=== PATIENT | female | born 1965 | race Caucasian/White ===

== ENCOUNTER 2023-04-19 10:48 | Emergency (ER) | payer OTHER ==
[~2023-04-19] VITALS: Ht 172.7 cm; Wt 88.5 kg
[~2023-04-19 10:48] MED LIST: ATENOLOL50 MG PO; AUGMENTIN 500-500 MG PO; CIPRO500 MG PO; CITALOPRAM HBR10 MG PO; COLACE100 MG PO; DEMADEX5 MG PO; FLAGYL500 MG PO; LASIX PO; LEVAQUIN500 MG PO; METFORMIN HCL500 MG PO; MOTRIN800 MG PO; NORCO 5-325 TA1 EACH PO; OMEPRAZOLE20 MG PO; PERCOCET 5-3251 EACH PO; SIMVASTATIN20 MG PO
[2023-04-19] MEDS ORDERED: LISINOPRIL-HCT1 EAC2 PO (11:00)
[2023-04-19] MEDS ORDERED: CITALOPRAM HBR20 MG PO (11:00)
[2023-04-19] MEDS ORDERED: JARDIANCE10 MG PO (11:00)
[2023-04-19] MEDS ORDERED: TRULICITY1.5 MG/0.5 SQ (11:00)
[2023-04-19 11:15] LABS: BASOPHILS 1.2 % (0-2); EOSINOPHILS 3.7 % (0-6); HEMATOCRIT 38.6 % (35.0-50.0); HEMOGLOBIN 13.1 g/dL (12.0-18.0); LYMPHOCYTES 33.4 % (24-44); MCV 94.1 fl (81-99); MONOCYTES 6.4 % (0-12); NEUTROPHILS 55.3 % (39-80); PLATELET COUNT 316 K/uL (140-440); RDW 13.9 (10.5-15.0)
[2023-04-19 11:30] LABS: ALBUMIN 3.5 g/dL (3.4-5.0); ALBUMIN/GLOBULIN RATIO 0.83 (1.1-2.4); ANION GAP 12.7 (7-21); BILIRUBIN, TOTAL 0.3 ng/dL (0.2-1.0); BUN/CREATININE RATIO 12.31 (6.0-28.6); CALCIUM 9.6 mg/dL (8.5-10.1); CREATININE, SERUM 1.38 mg/dL (0.55-1.02); MAGNESIUM 1.7 mg/dL (1.8-2.4); POTASSIUM 4.7 mmol/L (3.5-5.1); PROTEIN, TOTAL 7.7 g/dL (6.4-8.2)
--- NOTE | 2023-04-19 11:54 | EKG ---
[facility] [address] [facility] [place], [place] [address] Signed Normal sinus rhythm Normal ECG No previous ECGs available Confirmed by Ronak Gaffney MD ([id number]) on 04/19/2023 11:54:24 AM Electronically Signed By: RONAK GAFFNEY 04/19/23 1154 PATIENT NAME: NANETTE ALEXANDER SHANAE Electrocardiogram DATE OF : 63 PHYSICIAN: RONAK GAFFNEY REPORT #: [id number] REPORT IS CONFIDENTIAL AND NOT TO BE RELEASED WITHOUT AUTHORIZATION
[2023-04-19] MEDS ORDERED: MAGNESIUM SULFATE 2 GM/50 ML BAG IV ONE (12:00)
== END 2023-04-19 14:53 | disposition home or self-care (01) ==
LOC: ED 10:48
PROVIDERS: Emergency Medicine
DX: I49.3 Ventricular premature depolarization (principal); E83.42 Hypomagnesemia; Z88.2 Allergy status to sulfonamides; Z88.1 Allergy status to other antibiotic agents; Z88.8 Allergy status to other drugs, medicaments and biological substances; Z79.84 Long term (current) use of oral hypoglycemic drugs; Z79.85 Long-term (current) use of injectable non-insulin antidiabetic drugs; Z79.899 Other long term (current) drug therapy
CPT/HCPCS: 36415; 80053; 83735; 84436; 84443; 84484; 85025; 93005; 93010; J3475

== ENCOUNTER 2024-08-31 21:35 | Emergency (ER) | payer OTHER ==
[~2024-08-31] VITALS: Ht 165.1 cm; Wt 92.2 kg
[~2024-08-31 21:35] MED LIST changes: +CITALOPRAM HBR20 MG PO; +JARDIANCE10 MG PO; +LISINOPRIL-HCT1 EAC2 PO; +METOPROLOL SUCC50 MG PO; +TRULICITY1.5 MG/0.5 SQ
[2024-09-01] MEDS ORDERED: KETOROLAC TROMETHAMINE 30 MG/ML VIAL IV ONE (00:15)
[2024-09-01 00:47] LABS: BASOPHILS 0.6 % (0.1-1.2); EOSINOPHILS 2.3 % (0.7-5.8); HEMATOCRIT 40.9 % (34.1-44.9); HEMOGLOBIN 13.6 g/dL (11.2-15.7); LYMPHOCYTES 25.6 % (19.3-51.7); MCH 31.7 PG (25.6-32.2); MCHC 33.3 g/dL (32.2-35.5); MCV 95.3 fL (79.4-94.8); MONOCYTES 6.5 % (4.7-12.5); NEUTROPHILS 64.8 % (34.0-71.1); PLATELET COUNT 261 K/uL (182-369); RBC 4.29 M/uL (3.93-5.22)
[2024-09-01 01:02] LABS: ALBUMIN 3.9 g/dL (3.4-5.0); ALBUMIN/GLOBULIN RATIO 0.95 (1.1-2.4); ANION GAP 14.2 (7-21); BILIRUBIN, TOTAL 0.3 mg/dL (0.2-1.0); BUN/CREATININE RATIO 17.94 (6.0-28.6); CALCIUM 9.3 mg/dL (8.5-10.1); CREATININE, SERUM 1.56 mg/dL (0.55-1.02); POTASSIUM 4.2 mmol/L (3.5-5.1)
[2024-09-01] MEDS ORDERED: CYCLOBENZAPRINE10 MG PO (02:28)
[2024-09-01 02:30] VITALS: BP 102/78
== END 2024-09-01 02:45 | disposition home or self-care (01) ==
LOC: ED 21:35
PROVIDERS: Family Medicine
DX: S70.01XA Contusion of right hip, initial encounter (principal); V89.2XXA Person injured in unspecified motor-vehicle accident, traffic, initial encounter; Z88.2 Allergy status to sulfonamides; Z79.84 Long term (current) use of oral hypoglycemic drugs
CPT/HCPCS: 36415; 72125; 73700; 74177; 80053; 85025; 99284-25; J1885; Q9967